=== PATIENT | male | born 1985 | race Caucasian/White ===

== ENCOUNTER 2017-01-24 21:18 | Emergency (ER) | payer BC, OTHER ==
[~2017-01-24] VITALS: Ht 175.3 cm; Wt 83.9 kg
[~2017-01-24 21:18] MED LIST: AMOXICILLIN 50500 M1 PO; IBUPROFEN 800800 M1 PO; NORCO 10-325 T1 EACH PO; NORCO 5-325 TA1 EACH PO; PERCOCET 5-3251 EACH PO; PHENERGAN 25 MG25 M1 PO; PRILOSEC40 MG PO
[2017-01-24] MEDS ORDERED: ULTRAM 50MG TAB50 MG PO (22:19)
[2017-01-24] MEDS ORDERED: NAPROSYN500 MG PO (22:20)
== END 2017-01-24 22:58 | disposition home or self-care (01) ==
LOC: ER 21:18
DX: K02.9 Dental caries, unspecified (principal); Z98.890 Other specified postprocedural states; F17.210 Nicotine dependence, cigarettes, uncomplicated; F10.99 Alcohol use, unspecified with unspecified alcohol-induced disorder